=== PATIENT | female | born 1945 | race Caucasian/White ===

== ENCOUNTER → 2023-03-29 | Outpatient (CLI) | payer MEDICARE | END | disposition home or self-care (01) | LOC: RESCLI 09:41 | PROVIDERS: ATTEND Internal Medicine | DX: I10 Essential (primary) hypertension (principal); E78.5 Hyperlipidemia, unspecified; G47.00 Insomnia, unspecified; M54.9 Dorsalgia, unspecified; G20 Parkinson's disease; N32.81 Overactive bladder; M81.0 Age-related osteoporosis without current pathological fracture; K59.00 Constipation, unspecified; Z00.00 Encounter for general adult medical examination without abnormal findings; I95.1 Orthostatic hypotension; Z98.890 Other specified postprocedural states; Z82.49 Family history of ischemic heart disease and other diseases of the circulatory system; Z88.0 Allergy status to penicillin; Z88.8 Allergy status to other drugs, medicaments and biological substances; Z79.899 Other long term (current) drug therapy ==

== ENCOUNTER → 2024-05-09 | Outpatient (CLI) | payer MEDICARE | END | disposition home or self-care (01) | LOC: RESCLI 03:39 | PROVIDERS: ATTEND Student in an Organized Health Care Education/Training Program | DX: I10 Essential (primary) hypertension (principal); G47.00 Insomnia, unspecified; E78.5 Hyperlipidemia, unspecified; M54.9 Dorsalgia, unspecified; G20.A1 Parkinson's disease without dyskinesia, without mention of fluctuations; N32.81 Overactive bladder; F10.90 Alcohol use, unspecified, uncomplicated; M81.0 Age-related osteoporosis without current pathological fracture; K59.00 Constipation, unspecified; I95.1 Orthostatic hypotension; Z88.0 Allergy status to penicillin; Z88.8 Allergy status to other drugs, medicaments and biological substances; Z98.890 Other specified postprocedural states; Z82.49 Family history of ischemic heart disease and other diseases of the circulatory system; Z79.899 Other long term (current) drug therapy; Y90.9 Presence of alcohol in blood, level not specified ==